=== PATIENT | female | born 1955 | race Caucasian/White ===

== ENCOUNTER 2017-03-08 08:20 | Outpatient (CLI) | payer OTHER ==
[2017-03-08] VITALS (12 sets, daily range): BP systolic 125–148; BP diastolic 62–90
[~2017-03-08] VITALS: Ht 175.3 cm; Wt 102.5 kg
[2017-03-08] MEDS ORDERED: METO50TA2 PO (08:51)
[2017-03-08] MEDS ORDERED: GLIP5TAB10 PO (08:51)
[2017-03-08] MEDS ORDERED: LISI-334 PO (08:51)
[2017-03-08] MEDS ORDERED: HYDR25TA9 PO (08:51)
[2017-03-08] MEDS ORDERED: MONT10TA9 PO (08:51)
[2017-03-08] MEDS ORDERED: POTASSIUM CHLO10 MEQ PO (08:51)
[2017-03-08 09:08] LABS: BASO # 0.1 x10^3/uL (0.0-0.2); BASO % 1 % (0-3); EOS % 4 % (0-3); HEMATOCRIT 43.3 % (36.0-47.0); HEMOGLOBIN 15.1 g/dL (12.0-15.5); LYMPH # 2.3 x10^3/uL (1.0-4.8); LYMPH % 45 % (24-48); MEAN CORPUSCULAR HEMOGLOBIN 31 pg (25-35); MEAN CORPUSCULAR HGB CONC 35 g/dL (31-37); MEAN CORPUSCULAR VOLUME 89 fL (79-100); MONO % 7 % (0-9); NEUT % 43 % (31-73); PLATELET COUNT 174 x10^3/uL (140-400); RED CELL DISTRIBUTION WIDTH 12.6 % (11.5-14.5); WHITE BLOOD COUNT 5.2 x10^3/uL (4.0-11.0)
[2017-03-08 09:21] LABS: INR 1.1 (0.8-1.1); PROTHROMBIN TIME PATIENT 13.3 SEC (11.7-14.0)
[2017-03-08] MEDS ORDERED: LIDOCAINE 1% / SOD BICARB 8.4% 20 ML VIAL. IJ ONE ×2 (09:40→10:00)
[2017-03-08] MEDS ORDERED: NALOXONE 0.4 MG/ML VIAL. ONE (09:50)
[2017-03-08] MEDS ORDERED: FLUMAZENIL 0.5 MG/5 ML VIAL. IV ONE (09:50)
[2017-03-08] MEDS ORDERED: fentaNYL PF VIAL 250 MCG/5 ML VIAL ONE (09:51)
[2017-03-08] MEDS ORDERED: MIDAZOLAM HCL/PF 5 MG/5 ML VIAL. ONE (09:51)
[2017-03-08] MEDS ORDERED: fentaNYL PF VIAL 250 MCG/5 ML VIAL IV ONE (10:00)
[2017-03-08] MEDS ORDERED: MIDAZOLAM HCL/PF 5 MG/5 ML VIAL. IV ONE (10:00)
--- NOTE | 2017-03-08 10:27 | PDOC ---
MODERATE SEDATION ASSESSMENT RISKS/ALTERNATIVES Risks/Alternatives Risks and alternatives of this type of sedation and procedure discussed with: RISK/ALTERNATIVES: Patient H & P ON CHART H & P H & P on chart and reviewed for co-morbid conditions and appropriate labs. H&P ON CHART: Yes STATUS PREG STATUS ASSESSED: N/A MEDS/ALLERGIES REVIEWED Meds/Allergies Reviewed Medications and Allergies including time and route of recently administered narcotics and sedatives. MEDS/ALLERGIES REVIEWED: Yes ASA RATING ASA RATING: II AIRWAY ASSESSMENT Airway Assessment Airway patency, oral function limitations, presence of caps, crowns, dentures, partials, and ability to extend neck assessed. AIRWAY ASSESSMENT: Yes MALLAMPATI SCORE MALLAMPATI SCORE: II PRE-SEDATION ASSESSMENT PRE-SEDATION ASSESSMENT: Yes RADHA ALBARRAN MD March 08, 2017 10:27
--- NOTE | 2017-03-08 10:29 | PDOC1 ---
History and Physical Date of Procedure Date of Admission 03/08/17 Procedure Procedure Image guided liver bx Indication Indication 61 YO female with elevated LFTs Past Medical History Past Medical History See Nursing Pre procedure PMH Past Surgical History Past Surgical History See Nursing Pre Procedure PSH Current Medications Current Medications Current Medications Lidocaine/Sodium Bicarbonate (Buffered Lidocaine 1%) 20 ml STK-MED ONCE IJ ; Start 03/08/17 at 09:40; Stop 03/08/17 at 09:41; Status DC Naloxone HCl (Narcan) 0.4 mg STK-MED ONCE .ROUTE ; Start 03/08/17 at 09:50; Stop 03/08/17 at 09:51; Status DC Flumazenil (Romazicon) 0.5 mg STK-MED ONCE IV ; Start 03/08/17 at 09:50; Stop at 09:51; Status DC Midazolam HCl (Versed) 5 mg STK-MED ONCE .ROUTE ; Start 03/08/17 at 09:51; Stop 03/08/17 at 09:52; Status DC Fentanyl Citrate (Fentanyl 5ml Vial) 250 mcg STK-MED ONCE .ROUTE ; Start at 09:51; Stop 03/08/17 at 09:52; Status DC Lidocaine/Sodium Bicarbonate (Buffered Lidocaine 1%) 20 ml 1X ONCE IJ Last administered on 03/08/17 10:17; Start 03/08/17 at 10:00; Stop 03/08/17 at 10:01 ; Status DC Midazolam HCl (Versed) 5 mg 1X ONCE IV Last administered on 03/08/17 10:16; Start 03/08/17 at 10:00; Stop 03/08/17 at 10:01; Status DC Fentanyl Citrate (Fentanyl 5ml Vial) 250 mcg 1X ONCE IV Last administered on 10:17; Start 03/08/17 at 10:00; Stop 03/08/17 at 10:01; Status DC Active Scripts Active Reported Potassium Chloride 10 Meq Capsule.er 10 Meq PO DAILY Montelukast Sodium Tablet (Montelukast Sodium) 10 Mg Tablet 10 Mg PO HS Glipizide 5 Mg Tablet 1 Tab PO BID Metoprolol Tartrate 50 Mg Tablet 50 Mg PO BID Lisinopril 20 Mg Tablet 20 Mg PO DAILY Hydrochlorothiazide Tablet (Hydrochlorothiazide) 25 Mg Tablet 25 Mg PO DAILY Allergies Allergies: Coded Allergies: No Known Drug Allergies (Unverified , 03/08/17) Physical Exam Vital Signs Vital Signs Date Time Temp Pulse Resp B/P (MAP) Pulse Ox O2 Delivery O2 Flow Rate FiO2 03/08/17 10:17 14 95 Room Air 03/08/17 10:14 63 03/08/17 10:06 3.0 03/08/17 08:54 98.1 148/90 (109) 98.1 Lungs: Clear to auscultation Heart: Normal S2 Psych/Mental Status: Mental status NL Assessment Assessment 61 YO female with elevated LFTs. Problems: Plan Plan Image guided liver bx, as requested by GI. RADHA ALBARRAN MD March 08, 2017 10:29
--- NOTE | 2017-03-08 10:30 | PDOC ---
Exam Program Checker Program Checker Donna Pre-Procedure Diagnosis Pre-Procedure Diagnosis 61 YO diabetic female, with elevated LFTs. Post-Procedure Diagnosis Post-Procedure Diagnosis Same Procedure Performed Procedure Performed CT guided right lobe liver bx Type of Anesthesia Type of Anesthesia Local + Mod sedation. Estimated Blood Loss EBL: Trace Specimens Specimans 3 18G core bx to path in formalin Condition of Patient Condition of Patient Stable. No apparent complication. Disposition Disposition Home from [facility] post recovery, if no problems. F/u with Dr Light. Full report to follow. RADHA ALBARRAN MD March 08, 2017 10:30
--- NOTE | 2017-03-08 16:03 | RAD ---
CT-guided liver biopsy Indication: 61-year-old female with elevated LFTs. Image guided liver biopsy has been requested by GI. Anesthesia: 12 minutes moderate sedation was provided utilizing a total of 1.5 mg Versed and 75 mcg fentanyl, IV. The patient was appropriately monitored by a qualified independent observer throughout the time of moderate sedation. Consent: The procedure was explained in its entirety to the patient and/or the patient's designated agency service representative by a member of the treatment team. This included a discussion of risks and benefits and acceptable alternatives to the procedure, as well as expected consequences of no treatment at all. Discussion of risks included, but was not limited to, those that are most frequent and those that are rare, but possibly severe or life-threatening, as well as the possibility of unforeseen complications. Procedure: Informed consent was obtained from the patient. She was placed supine on the CT scanner. Preliminary noncontrast CT images were obtained through liver. A skin site suitable for CT-guided biopsy of right lobe of liver was selected and marked. That area was prepped and draped in the usual sterile fashion. Conscious sedation was provided with IV Versed and fentanyl. Using aseptic technique, local anesthesia, and CT guidance, a 17-gauge guide needle was successfully introduced into posterior segment right lobe of liver. Three 18-gauge core biopsy samples were then obtained and were submitted in formalin to pathology. Hemostasis was achieved with autologous clot introduced through the biopsy guide needle, which was then removed. A sterile dressing was applied. Patient tolerated the procedure well without apparent complication. Completion CT images revealed no evidence of significant intraparenchymal, subcapsular, or perihepatic hemorrhage. Impression: Successful, uneventful CT-guided liver biopsy, as described. PQRS Compliance Statement: One or more of the following individualized dose reduction techniques was utilized for this procedure: 1. Automated exposure control. 2. Adjustment of MA and/or KV according to patient size. 3. Iterative reconstruction technique.
== END 2017-03-08 12:15 | disposition home or self-care (01) ==
LOC: INTRAD 08:20
PROVIDERS: ATTEND Internal Medicine Gastroenterology
DX: R94.5 Abnormal results of liver function studies (principal); E11.9 Type 2 diabetes mellitus without complications; I10 Essential (primary) hypertension; Z79.01 Long term (current) use of anticoagulants
CPT/HCPCS: 36415; 47000; 77012; 85027; 85610; 99156; J2250; J3010

== ENCOUNTER 2017-07-26 11:57 | Inpatient (IN) | payer OTHER ==
[~2017-07-26] VITALS: Ht 167.6 cm; Wt 98.5 kg
[~2017-07-26 11:57] MED LIST: GLIP5TAB10 PO; HYDR25TA9 PO; LISI-334 PO; METO50TA2 PO; MONT10TA9 PO; POTASSIUM CHLO10 MEQ PO
--- NOTE | 2017-07-26 12:42 | EKG ---
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
--- NOTE | 2017-07-26 13:09 | RAD ---
Portable chest, 07/26/2017: History: Chest pain Comparison is made to a study from 06/26/2007. The heart size and pulmonary vascularity are normal. No acute infiltrate is seen. An unchanged tiny left lower chest nodule is probably a granuloma. There is no evidence of pleural fluid. IMPRESSION: No acute cardiopulmonary abnormality is detected.
[2017-07-26 13:10] LABS: BASO # 0.1 x10^3/uL (0.0-0.2); BASO % 1 % (0-3); EOS % 3 % (0-3); HEMATOCRIT 38.7 % (36.0-47.0); HEMOGLOBIN 13.3 g/dL (12.0-15.5); LYMPH # 3.6 x10^3/uL (1.0-4.8); LYMPH % 55 % (24-48); MEAN CORPUSCULAR HEMOGLOBIN 31 pg (25-35); MEAN CORPUSCULAR HGB CONC 34 g/dL (31-37); MEAN CORPUSCULAR VOLUME 90 fL (79-100); MONO % 8 % (0-9); NEUT % 33 % (31-73); PLATELET COUNT 159 x10^3/uL (140-400); RED BLOOD COUNT 4.31 x10^6/uL (3.50-5.40); WHITE BLOOD COUNT 6.5 x10^3/uL (4.0-11.0)
[2017-07-26 13:30] LABS: CALCIUM 8.7 mg/dL (8.5-10.1); CREATININE 0.6 mg/dL (0.6-1.0); GFR 101.6
[2017-07-26 13:35] LABS: ALBUMIN 3.4 g/dL (3.4-5.0); DIRECT BILIRUBIN 0.1 mg/dL (0.0-0.2); TOTAL BILIRUBIN 0.8 mg/dL (0.2-1.0); TOTAL PROTEIN 7.1 g/dL (6.4-8.2)
--- NOTE | 2017-07-26 14:12 | PHYS DOC ---
Past Medical History Past Medical History: Diabetes-Type I, High Cholesterol, Hypertension Additional Past Medical Histor: elevated liver enzymes Past Surgical History: Other Additional Past Surgical Histo: liver biobsy, laser surgery on cervix Alcohol Use: None Drug Use: None Adult General Chief Complaint Chief Complaint: OTHER COMPLAINTS HPI HPI 62-year-old female presenting to the emergency department today after reportedly having an abnormal EKG in the doctor's office. She had been seen in Dr. office because she was having some pain in her left elbow and left shoulder. 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 The pain in her left shoulder is a deep throbbing sensation. It is not sharp nor pressure. It is nonradiating intermittent worse with movement of the left shoulder and without alleviating factors. She denies nausea vomiting or diaphoresis. She denies unilateral leg swelling hemoptysis or personal family history of blood clotting disorders. Review of systems is negative for fevers chills cough abdominal pain. All other review of systems is negative unless otherwise noted in history of present illness. ED course: 62-year-old female presenting with left shoulder/chest pain and left elbow pain and being sent here after having an abnormal EKG in the doctor's office. Patient has no history of smoking has a history of high blood pressure and high cholesterol with diabetes without a family history of heart disease. EKG obtained and reviewed by myself shows sinus rhythm with a regular rate. [place] normal. Intervals are within normal limits. ST segments are congruent. Not consistent with acute coronary syndrome. Chest x-ray reviewed by myself shows no obvious infiltrate or pneumothorax present. No obvious acute cardiopulmonary process present. Blood work obtained which shows low potassium. Oral potassium given in the emergency department. Given the patient's chest pain a heart score was calculated to be 4. Given this finding the patient was admitted for chest pain rule out. I discussed case with Dr. Allison who accepted the patient for acute inpatient admission for ACS rule out further workup and care. Review of Systems Review of Systems SEE ABOVE. Allergies Allergies Allergies Coded Allergies Type Severity Reaction Last Updated Verified No Known Drug Allergies 03/08/17 No Physical Exam Physical Exam SEE ABOVE Constitutional: Well developed, well nourished, no acute distress, non-toxic appearance. [] HENT: Normocephalic, atraumatic, bilateral external ears normal, oropharynx moist, no oral exudates, nose normal. [] Eyes: PERRLA, EOMI, conjunctiva normal, no discharge. [] Neck: Normal range of motion, no tenderness, supple, no stridor. [] Cardiovascular:Heart rate regular rhythm, no murmur [] Lungs & Thorax: Bilateral breath sounds clear to auscultation [] Abdomen: Bowel sounds normal, soft, no tenderness, no masses, no pulsatile masses. [] Skin: Warm, dry, no erythema, no rash. [] Back: No tenderness, no CVA tenderness. [] Extremities: No tenderness, no cyanosis, no clubbing, ROM intact, no edema. [] Neurologic: Alert and oriented X 3, normal motor function, normal sensory function, no focal deficits noted. [] Psychologic: Affect normal, judgement normal, mood normal. [] Current Patient Data Vital Signs Vital Signs Date Time Temp Pulse Resp B/P (MAP) Pulse Ox O2 Delivery O2 Flow Rate FiO2 07/26/17 12:31 97.8 69 20 169/83 (111) 98 Room Air 97.8 Lab Values Laboratory Tests Test 07/26/17 12:50 White Blood Count 6.5 x10^3/uL (4.0-11.0) Red Blood Count 4.31 x10^6/uL (3.50-5.40) Hemoglobin 13.3 g/dL (12.0-15.5) Hematocrit 38.7 % (36.0-47.0) Mean Corpuscular Volume 90 fL (79-100) Mean Corpuscular Hemoglobin 31 pg (25-35) Mean Corpuscular Hemoglobin Concent 34 g/dL (31-37) Red Cell Distribution Width 13.0 % (11.5-14.5) Platelet Count 159 x10^3/uL (140-400) Neutrophils (%) (Auto) 33 % (31-73) Lymphocytes (%) (Auto) 55 % (24-48) H Monocytes (%) (Auto) 8 % (0-9) Eosinophils (%) (Auto) 3 % (0-3) Basophils (%) (Auto) 1 % (0-3) Neutrophils # (Auto) 2.1 x10^3uL (1.8-7.7) Lymphocytes # (Auto) 3.6 x10^3/uL (1.0-4.8) Monocytes # (Auto) 0.5 x10^3/uL (0.0-1.1) Eosinophils # (Auto) 0.2 x10^3/uL (0.0-0.7) Basophils # (Auto) 0.1 x10^3/uL (0.0-0.2) Sodium Level 141 mmol/L (136-145) Potassium Level 3.0 mmol/L (3.5-5.1) L Chloride Level 104 mmol/L (98-107) Carbon Dioxide Level 28 mmol/L (21-32) Anion Gap 9 (6-14) Blood Urea Nitrogen 12 mg/dL (7-20) Creatinine 0.6 mg/dL (0.6-1.0) Estimated GFR (Cockcroft-Gault) 101.6 Glucose Level 229 mg/dL (70-99) H Calcium Level 8.7 mg/dL (8.5-10.1) Total Bilirubin 0.8 mg/dL (0.2-1.0) Direct Bilirubin 0.1 mg/dL (0.0-0.2) Aspartate Amino Transferase (AST) 24 U/L (15-37) Alanine Aminotransferase (ALT) 33 U/L (14-59) Alkaline Phosphatase 123 U/L (46-116) H Troponin I Quantitative < 0.017 ng/mL (0.000-0.055) QW-Cqj-U-Type Natriuretic Peptide 47 pg/mL (0-124) Total Protein 7.1 g/dL (6.4-8.2) Albumin 3.4 g/dL (3.4-5.0) Lipase 256 U/L (73-393) Laboratory Tests 07/26/17 12:50 Laboratory Tests 07/26/17 12:50 EKG EKG [] Radiology/Procedures Radiology/Procedures [] Course & Med Decision Making Course & Med Decision Making Pertinent Labs and Imaging studies reviewed. (See chart for details) [] Dragon Disclaimer Dragon Disclaimer This electronic medical record was generated, in whole or in part, using a voice recognition dictation system. Departure Departure Impression: Primary Impression: Shoulder pain, left Disposition: ADMITTED INPATIENT Admitting Physician: Rohan Allison Condition: STABLE Referrals: ROHAN ALLISON MD (PCP) MILVIA CAPELLAN MD Jul 26, 2017 14:12
[2017-07-26] MEDS ORDERED: ONDANSETRON PF 4 MG/2 ML VIAL. IV PRN (14:15)
[2017-07-26] MEDS ORDERED: MORPHINE SULFATE 2 MG/ML DISP.SYRIN. IV PRN (14:15)
[2017-07-26] MEDS ORDERED: POTASSIUM CHLORIDE 20 MEQ TABLET.ER. PO ONE (14:15)
--- NOTE | 2017-07-26 16:28 | PDOC2 ---
LINDA SIU LEAD CARGO MOVER 07/26/17 1628: CARDIAC CONSULT DATE OF CONSULT Date of Consult DATE: 07/26/17 TIME: 16:19 REASON FOR CONSULT Reason for Consult: Chest pain REFERRING PHYSICIAN Referring Physician: Dr. Ngo SOURCE Source: Chart review, Patient HISTORY OF PRESENT ILLNESS HISTORY OF PRESENT ILLNESS This is a 62 yo female who presented to PCP office with complaints of chest and left arm pain. In office EKG was reportedly abnormal and patient was sent to the ED for further evaluation and treatment. Patient reports pain began 1 week ago. Was driving home from work when pain developed. Located in her left chest. Describes as pressure. Not associated with dizziness, SOA, palpitations, dizziness, diaphoresis, or nausea/vomiting. Possibly worsened with certain movements. Pain resolved after about 30 minutes without intervention. This morning, pain returned so she went to her PCP. 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 Has done heavy lifting recently and possibly could have strained. No previous h/ o CAD or previous cardiac workup. PAST MEDICAL HISTORY Cardiovascular: HTN, Hyperlipidemia Pulmonary: No pertinent hx GI: No pertinent hx Heme/Onc: No pertinent hx Hepatobiliary: Other (fatty liver) Psych: No pertinent hx Musculoskeletal: Osteoarthritis Rheumatologic: No pertinent hx Infectious disease: No pertinent hx Endocrine: Diabetes Dermatology: No pertinent hx PAST SURGICAL HISTORY Past Surgical History: No pertinent history FAMILY HISTORY Family History: Coronary Artery Disease, Diabetes, Hypertension SOCIAL HISTORY Smoke: No ALCOHOL: none Drugs: None Lives: Alone CURRENT MEDICATIONS CURRENT MEDICATIONS Current Medications Medications (Trade) Dose Ordered Sig/Yuliya Route PRN Reason Start Time Stop Time Status Last Admin Dose Admin Potassium Chloride (Klor-Con) 40 meq 1X ONCE PO 07/26/17 14:15 07/26/17 14:17 DC 07/26/17 14:56 ALLERGIES ALLERGIES: Coded Allergies: No Known Drug Allergies (Unverified , 03/08/17) ROS Review of System 14 point ROS conducted with pertinent positives noted above in HPI. PHYSICAL EXAM General: Alert, Oriented X3, Cooperative, No acute distress HEENT: Atraumatic, Mucous membr. moist/pink Lungs: Clear to auscultation, Normal air movement Heart: Regular rate, Normal S1, Normal S2, No murmurs Abdomen: Soft, No tenderness Extremities: No edema, Normal pulses Skin: No significant lesion Neuro: Normal speech, Sensation intact Psych/Mental Status: Mental status NL, Mood NL MUSCULOSKELETAL: No joint tenderness, Osteoarthritic changes both hands VITALS VITALS Vital Signs Date Time Temp Pulse Resp B/P (MAP) Pulse Ox O2 Delivery O2 Flow Rate FiO2 07/26/17 14:50 60 18 172/82 (112) 99 Room Air 07/26/17 12:31 97.8 97.8 LABS Lab: Laboratory Tests Test 07/26/17 12:50 White Blood Count 6.5 x10^3/uL (4.0-11.0) Red Blood Count 4.31 x10^6/uL (3.50-5.40) Hemoglobin 13.3 g/dL (12.0-15.5) Hematocrit 38.7 % (36.0-47.0) Mean Corpuscular Volume 90 fL (79-100) Mean Corpuscular Hemoglobin 31 pg (25-35) Mean Corpuscular Hemoglobin Concent 34 g/dL (31-37) Red Cell Distribution Width 13.0 % (11.5-14.5) Platelet Count 159 x10^3/uL (140-400) Neutrophils (%) (Auto) 33 % (31-73) Lymphocytes (%) (Auto) 55 % (24-48) Monocytes (%) (Auto) 8 % (0-9) Eosinophils (%) (Auto) 3 % (0-3) Basophils (%) (Auto) 1 % (0-3) Neutrophils # (Auto) 2.1 x10^3uL (1.8-7.7) Lymphocytes # (Auto) 3.6 x10^3/uL (1.0-4.8) Monocytes # (Auto) 0.5 x10^3/uL (0.0-1.1) Eosinophils # (Auto) 0.2 x10^3/uL (0.0-0.7) Basophils # (Auto) 0.1 x10^3/uL (0.0-0.2) Sodium Level 141 mmol/L (136-145) Potassium Level 3.0 mmol/L (3.5-5.1) Chloride Level 104 mmol/L (98-107) Carbon Dioxide Level 28 mmol/L (21-32) Anion Gap 9 (6-14) Blood Urea Nitrogen 12 mg/dL (7-20) Creatinine 0.6 mg/dL (0.6-1.0) Estimated GFR (Cockcroft-Gault) 101.6 Glucose Level 229 mg/dL (70-99) Calcium Level 8.7 mg/dL (8.5-10.1) Total Bilirubin 0.8 mg/dL (0.2-1.0) Direct Bilirubin 0.1 mg/dL (0.0-0.2) Aspartate Amino Transf (AST/SGOT) 24 U/L (15-37) Alanine Aminotransferase (ALT/SGPT) 33 U/L (14-59) Alkaline Phosphatase 123 U/L (46-116) Troponin I Quantitative < 0.017 ng/mL (0.000-0.055) TN-Bwb-Y-Type Natriuretic Peptide 47 pg/mL (0-124) Total Protein 7.1 g/dL (6.4-8.2) Albumin 3.4 g/dL (3.4-5.0) Lipase 256 U/L (73-393) ASSESSMENT/PLAN ASSESSMENT/PLAN 1. Chest pain, atypical 2. Abnormal EKG 3. Hypertension 4. Hypokalemia Recommendations Check lipids, trend troponin Resume home antiHTN therapy Pain likely MSK in origin, but given risk factors and EKG, will proceed with MPI in the am to r/o ischemia NPO p MN. Problems: PIA KING MD 07/27/17 1832: CARDIAC CONSULT ALLERGIES ALLERGIES: Coded Allergies: No Known Drug Allergies (Unverified , 03/08/17) ASSESSMENT/PLAN ASSESSMENT/PLAN Pt. 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 Will follow. Problems: LINDA SIU APRN Jul 26, 2017 16:28 PIA KING MD Jul 27, 2017 18:32
[2017-07-26] MEDS ORDERED: FLU VACC QS2017-18 (36MOS+)/PF 0.5 ML SYRINGE. VAX IM ONE (18:00)
[2017-07-26] MEDS ORDERED: DEXTROSE 50% 25 GM / 50ML DISP.SYRIN. IV PRN (18:30)
[2017-07-26 19:56] VITALS: BP 114/64
[2017-07-26] MEDS: MONTELUKAST SODIUM 10 MG TABLET. PO SCH (21:14)
[2017-07-26] MEDS: METOPROLOL TART IMMED RELEASE 50 MG TABLET. PO SCH (21:15)
[2017-07-26 22:56] VITALS: BP 117/75
[2017-07-27 03:02] VITALS: BP 135/84
[2017-07-27 06:27] LABS: BASO % 1 % (0-3); EOS % 4 % (0-3); HEMATOCRIT 38.7 % (36.0-47.0); HEMOGLOBIN 13.2 g/dL (12.0-15.5); LYMPH # 2.6 x10^3/uL (1.0-4.8); LYMPH % 51 % (24-48); MEAN CORPUSCULAR HEMOGLOBIN 31 pg (25-35); MEAN CORPUSCULAR HGB CONC 34 g/dL (31-37); MEAN CORPUSCULAR VOLUME 91 fL (79-100); MONO % 8 % (0-9); NEUT % 37 % (31-73); PLATELET COUNT 148 x10^3/uL (140-400); RED BLOOD COUNT 4.26 x10^6/uL (3.50-5.40); RED CELL DISTRIBUTION WIDTH 12.9 % (11.5-14.5); WHITE BLOOD COUNT 5.1 x10^3/uL (4.0-11.0)
[2017-07-27 07:29] LABS: ALBUMIN 3.2 g/dL (3.4-5.0); ALBUMIN/GLOBULIN RATIO 0.9 (1.0-1.7); CALCIUM 8.6 mg/dL (8.5-10.1); CREATININE 0.6 mg/dL (0.6-1.0); GFR 101.6; TOTAL BILIRUBIN 0.8 mg/dL (0.2-1.0); TOTAL PROTEIN 6.6 g/dL (6.4-8.2)
[2017-07-27 07:30] VITALS: BP 140/69
[2017-07-27 07:33] LABS: CHOLESTEROL/HDL RATIO 4.2
[2017-07-27] MEDS: INSULIN ASPART 300 UNITS/3 ML INSULN.PEN SQ SCH ×3 (08:00→17:43)
[2017-07-27] MEDS ORDERED: POTASSIUM CHLORIDE 10 MEQ TABLET.ER. PO SCH (08:00)
[2017-07-27] MEDS: METOPROLOL TART IMMED RELEASE 50 MG TABLET. PO SCH ×2 (08:38→22:21)
[2017-07-27] MEDS ORDERED: LISINOPRIL 20 MG TABLET PO SCH (09:00)
[2017-07-27] MEDS ORDERED: REGADENOSON 0.4 MG/5 ML DISP.SYRIN. IV ONE (09:00)
[2017-07-27] MEDS ORDERED: hydroCHLOROthiazide 25 MG TABLET PO SCH ×2 (09:00→21:00)
[2017-07-27] MEDS ORDERED: POTASSIUM CHLORIDE 20 MEQ TABLET.ER. PO ONE ×2 (10:15→12:00)
[2017-07-27 11:00] VITALS: BP 140/65
--- NOTE | 2017-07-27 11:28 | PDOC ---
Provider Note Provider Note Patient seen.Combined History and Physical and discharge summary dictated. See dictation# [id number]. ROHAN ALLISON MD Jul 27, 2017 11:28
--- NOTE | 2017-07-27 14:11 | HP ---
ADMIT DATE: 07/27/2017 ANTICIPATED DATE OF DISCHARGE: 07/27/2017 REASON FOR ADMISSION: Chest pain and abnormal EKG. HISTORY OF PRESENT ILLNESS: This 62-year-old female started having chest pain last week while driving home from work and developed a sharp pain anterior and slightly left of the sternum. The pain lasted for 35-45 minutes. No other symptoms at that time. Subsequently, the pain resolved, but yesterday the pain started again and because of that she came to the office. In the office, EKG showed T-wave inversion in multiple anterolateral leads and they were new compared to the previous EKG in 2012. Because of the chest pains, multiple risk factors and EKG changes, the patient was sent to the Emergency Room. In the Emergency Room, initial workup was negative and the cardiac enzymes were stable, and the patient was admitted for further evaluation and management. At present time, the patient is saying that her chest pain is better. She denies any dyspnea, palpitations, dizziness, cold, cough, congestion, heartburn, nausea, vomiting, diarrhea, constipation, leg pain, leg swelling, dizziness, diaphoresis, or palpitations. REVIEW OF SYSTEMS: As noted in the history of present illness. Other systems reviewed and are negative. PAST MEDICAL HISTORY: The patient has history of hypertension, hyperlipidemia, diabetes mellitus type 2 with history of hypoglycemia, allergic rhinitis, allergic sinusitis, vitamin D deficiency. PAST SURGICAL HISTORY: The patient had a laceration on the right forehead. She had laser surgery on cervix, third stage cancer, D and C x 3. FAMILY HISTORY: Father had diabetes. Mother had diabetes and Parkinson disease. SOCIAL HISTORY: The patient is . No history of smoking, alcoholism or drug abuse. MEDICATIONS: Reviewed. The patient was given aspirin 325 mg in the office prior to her being sent to the hospital. PHYSICAL EXAMINATION: HEENT: The patient is alert, oriented x 3 and not in acute distress. VITAL SIGNS: Temperature 97.7, pulse 65 per minute, respirations 18 per minute, blood pressure 140/69 mmHg. GENERAL: The patient is alert, oriented and not in acute distress. LUNGS: Clear. HEENT: Unremarkable. EYES: Pupils are equal, reacting to light. SKIN: Warm and dry. There is no cyanosis. CARDIOVASCULAR: S1, S2 regular. ABDOMEN: Soft, nontender, no guarding, no rigidity. Liver, spleen and kidney not palpable. Bowel sounds present. EXTREMITIES: No edema. NEUROLOGIC: Alert and oriented, moves all extremities. LABORATORY FINDINGS: Sodium is 144, potassium is 3, BUN 10, creatinine 0.6, glucose 221 and 117, total protein 6.6, albumin 3.2. Triglycerides 160, cholesterol 180, LDL 105. Troponin level is less than 0.017, magnesium 1.9. WBC count 5.1, hemoglobin 13.2. FINAL DIAGNOSES: 1. Chest pain, may be musculoskeletal, but because of the risk factors we will get Cardiology consultation with Dr. Chua. Tugboat Pilot has ordered myocardial perfusion imaging. If the myocardial perfusion imaging is negative, she will be discharged later today. 2. Type 2 diabetes mellitus with hyperglycemia without long-term current use of insulin. 3. Hypertension. 4. Left elbow pain. 5. Hypokalemia. 6. Mixed hyperlipidemia. PLAN: She will need to take cholesterol medication. If the patient is stable, then we will discharge her later today if the myocardial perfusion imaging is negative. FOLLOWUP: To be followed by MD in 5 days. MEDICATIONS: Please refer to the discharge medication list. No new medications at this time, but consideration will be given to starting her on statins because of her being diabetic and high risk for vascular complications. ACTIVITY: As tolerated. DIET: ADA 2 g sodium, low cholesterol diet. ROHAN ALLISON MD DR: KLEVER/mic JOB#: [id number] / [id number]
[2017-07-27 14:50] VITALS: BP 136/61
[2017-07-27 19:15] VITALS: BP 134/68
[2017-07-27] MEDS: TRIAMTERENE/HCTZ 37.5/25MG TABLET. PO SCH (22:20)
[2017-07-27] MEDS: POTASSIUM CHLORIDE 10 MEQ TABLET.ER. PO SCH (22:21)
[2017-07-27] MEDS: MONTELUKAST SODIUM 10 MG TABLET. PO SCH (22:22)
[2017-07-27] MEDS: LISINOPRIL 20 MG TABLET PO SCH (22:22)
[2017-07-27 23:00] VITALS: BP 141/80
[2017-07-28 03:25] VITALS: BP 105/62
[2017-07-28 06:05] LABS: CALCIUM 8.5 mg/dL (8.5-10.1); CREATININE 0.6 mg/dL (0.6-1.0); GFR 101.6; POTASSIUM 4.1 mmol/L (3.5-5.1)
[2017-07-28 07:30] VITALS: BP 141/75
[2017-07-28] MEDS: INSULIN ASPART 300 UNITS/3 ML INSULN.PEN SQ SCH ×3 (08:00→17:20)
[2017-07-28] MEDS: METOPROLOL TART IMMED RELEASE 50 MG TABLET. PO SCH ×2 (08:29→21:03)
[2017-07-28 10:30] VITALS: BP 137/77
--- NOTE | 2017-07-28 10:48 | PDOC ---
IM PROGRESS NOTES- Subjective Subjective Chest pain is better. Objective Vitals Vital Signs Date Time Temp Pulse Resp B/P (MAP) Pulse Ox O2 Delivery O2 Flow Rate FiO2 07/28/17 08:29 141/75 07/28/17 08:00 Room Air 07/28/17 07:30 98.1 61 18 94 98.1 Physical Exam Physical Exam General appearance - alert,well appearing, and in no distress and oriented to person, place, and time Mental Status - alert, oriented to person, place, and time, affect appropriate to mood Head - normal Chest - clear to auscultation, no wheezes, rales or rhonchi, symmetric air entry Heart - S1 and S2 normal Abdomen - soft, nontender, nondistended, no masses or organomegaly Neurological - alert and oriented Musculoskeletal - no muscular tenderness noted Extremities - no pedal edema Skin - warm and dry Labs Laboratory Tests Test 07/26/17 12:50 07/26/17 17:41 07/26/17 20:30 07/26/17 21:12 White Blood Count 6.5 x10^3/uL (4.0-11.0) Red Blood Count 4.31 x10^6/uL (3.50-5.40) Hemoglobin 13.3 g/dL (12.0-15.5) Hematocrit 38.7 % (36.0-47.0) Mean Corpuscular Volume 90 fL (79-100) Mean Corpuscular Hemoglobin 31 pg (25-35) Mean Corpuscular Hemoglobin Concent 34 g/dL (31-37) Red Cell Distribution Width 13.0 % (11.5-14.5) Platelet Count 159 x10^3/uL (140-400) Neutrophils (%) (Auto) 33 % (31-73) Lymphocytes (%) (Auto) 55 % (24-48) Monocytes (%) (Auto) 8 % (0-9) Eosinophils (%) (Auto) 3 % (0-3) Basophils (%) (Auto) 1 % (0-3) Neutrophils # (Auto) 2.1 x10^3uL (1.8-7.7) Lymphocytes # (Auto) 3.6 x10^3/uL (1.0-4.8) Monocytes # (Auto) 0.5 x10^3/uL (0.0-1.1) Eosinophils # (Auto) 0.2 x10^3/uL (0.0-0.7) Basophils # (Auto) 0.1 x10^3/uL (0.0-0.2) Sodium Level 141 mmol/L (136-145) Potassium Level 3.0 mmol/L (3.5-5.1) Chloride Level 104 mmol/L (98-107) Carbon Dioxide Level 28 mmol/L (21-32) Anion Gap 9 (6-14) Blood Urea Nitrogen 12 mg/dL (7-20) Creatinine 0.6 mg/dL (0.6-1.0) Estimated GFR (Cockcroft-Gault) 101.6 Glucose Level 229 mg/dL (70-99) Calcium Level 8.7 mg/dL (8.5-10.1) Magnesium Level 1.9 mg/dL (1.8-2.4) Total Bilirubin 0.8 mg/dL (0.2-1.0) Direct Bilirubin 0.1 mg/dL (0.0-0.2) Aspartate Amino Transf (AST/SGOT) 24 U/L (15-37) Alanine Aminotransferase (ALT/SGPT) 33 U/L (14-59) Alkaline Phosphatase 123 U/L (46-116) Troponin I Quantitative < 0.017 ng/mL (0.000-0.055) < 0.017 ng/mL (0.000-0.055) GZ-Cwy-C-Type Natriuretic Peptide 47 pg/mL (0-124) Total Protein 7.1 g/dL (6.4-8.2) Albumin 3.4 g/dL (3.4-5.0) Lipase 256 U/L (73-393) Glucose (Fingerstick) 138 mg/dL (70-99) 221 mg/dL (70-99) Test 07/27/17 02:30 07/27/17 04:30 07/27/17 08:02 07/27/17 11:46 White Blood Count 5.1 x10^3/uL (4.0-11.0) Red Blood Count 4.26 x10^6/uL (3.50-5.40) Hemoglobin 13.2 g/dL (12.0-15.5) Hematocrit 38.7 % (36.0-47.0) Mean Corpuscular Volume 91 fL (79-100) Mean Corpuscular Hemoglobin 31 pg (25-35) Mean Corpuscular Hemoglobin Concent 34 g/dL (31-37) Red Cell Distribution Width 12.9 % (11.5-14.5) Platelet Count 148 x10^3/uL (140-400) Neutrophils (%) (Auto) 37 % (31-73) Lymphocytes (%) (Auto) 51 % (24-48) Monocytes (%) (Auto) 8 % (0-9) Eosinophils (%) (Auto) 4 % (0-3) Basophils (%) (Auto) 1 % (0-3) Neutrophils # (Auto) 1.9 x10^3uL (1.8-7.7) Lymphocytes # (Auto) 2.6 x10^3/uL (1.0-4.8) Monocytes # (Auto) 0.4 x10^3/uL (0.0-1.1) Eosinophils # (Auto) 0.2 x10^3/uL (0.0-0.7) Basophils # (Auto) 0.0 x10^3/uL (0.0-0.2) Troponin I Quantitative < 0.017 ng/mL (0.000-0.055) Sodium Level 144 mmol/L (136-145) Potassium Level 3.0 mmol/L (3.5-5.1) Chloride Level 106 mmol/L (98-107) Carbon Dioxide Level 26 mmol/L (21-32) Anion Gap 12 (6-14) Blood Urea Nitrogen 10 mg/dL (7-20) Creatinine 0.6 mg/dL (0.6-1.0) Estimated GFR (Cockcroft-Gault) 101.6 BUN/Creatinine Ratio 17 (6-20) Glucose Level 207 mg/dL (70-99) Calcium Level 8.6 mg/dL (8.5-10.1) Total Bilirubin 0.8 mg/dL (0.2-1.0) Aspartate Amino Transf (AST/SGOT) 28 U/L (15-37) Alanine Aminotransferase (ALT/SGPT) 34 U/L (14-59) Alkaline Phosphatase 106 U/L (46-116) Total Protein 6.6 g/dL (6.4-8.2) Albumin 3.2 g/dL (3.4-5.0) Albumin/Globulin Ratio 0.9 (1.0-1.7) Triglycerides Level 160 mg/dL (0-150) Cholesterol Level 180 mg/dL (0-200) LDL Cholesterol, Calculated 105 mg/dL (0-100) VLDL Cholesterol, Calculated 32 mg/dL (0-40) Non-HDL Cholesterol Calculated 137 mg/dL (0-129) HDL Cholesterol 43 mg/dL (40-60) Cholesterol/HDL Ratio 4.2 Glucose (Fingerstick) 117 mg/dL (70-99) 191 mg/dL (70-99) Test 07/27/17 16:41 07/27/17 20:43 07/28/17 05:04 07/28/17 08:17 Glucose (Fingerstick) 198 mg/dL (70-99) 199 mg/dL (70-99) 127 mg/dL (70-99) Sodium Level 141 mmol/L (136-145) Potassium Level 4.1 mmol/L (3.5-5.1) Chloride Level 107 mmol/L (98-107) Carbon Dioxide Level 27 mmol/L (21-32) Anion Gap 7 (6-14) Blood Urea Nitrogen 8 mg/dL (7-20) Creatinine 0.6 mg/dL (0.6-1.0) Estimated GFR (Cockcroft-Gault) 101.6 Glucose Level 143 mg/dL (70-99) Calcium Level 8.5 mg/dL (8.5-10.1) Laboratory Tests Test 07/27/17 11:46 07/27/17 16:41 07/27/17 20:43 07/28/17 05:04 Glucose (Fingerstick) 191 mg/dL (70-99) 198 mg/dL (70-99) 199 mg/dL (70-99) Sodium Level 141 mmol/L (136-145) Potassium Level 4.1 mmol/L (3.5-5.1) Chloride Level 107 mmol/L (98-107) Carbon Dioxide Level 27 mmol/L (21-32) Anion Gap 7 (6-14) Blood Urea Nitrogen 8 mg/dL (7-20) Creatinine 0.6 mg/dL (0.6-1.0) Estimated GFR (Cockcroft-Gault) 101.6 Glucose Level 143 mg/dL (70-99) Calcium Level 8.5 mg/dL (8.5-10.1) Test 07/28/17 08:17 Glucose (Fingerstick) 127 mg/dL (70-99) Meds Current Medications Hydrochlorothiazide (Hydrodiuril) 25 mg QHS PO ; Start 07/27/17 at 21:00; Stop 07/27/17 at 21:00; Status DC Lisinopril (Prinivil) 20 mg QHS PO Last administered on 07/27/17 22:22; Start 07/27/17 at 21:00 Potassium Chloride (Klor-Con) 10 meq QHS PO Last administered on 07/27/17 22: 21; Start 07/27/17 at 21:00 Potassium Chloride (Klor-Con) 20 meq 1X ONCE PO Last administered on 12:23; Start 07/27/17 at 12:00; Stop 07/27/17 at 12:01; Status DC Triamterene/HCTZ (Maxzide 37.5/ 25mg) 1 tab HS PO Last administered on 22:20; Start 07/27/17 at 21:00 Assessment Assessment 1. Chest pain, may be musculoskeletal, but because of the risk factors we will get Cardiology consultation with Dr. Chua. Rn Pain Management has ordered myocardial perfusion imaging. If the myocardial perfusion imaging is negative, she will be discharged later today. 2. Type 2 diabetes mellitus with hyperglycemia without long-term current use of insulin. 3. Hypertension. 4. Left elbow pain. 5. Hypokalemia. 6. Mixed hyperlipidemia. PLAN: She will need to take cholesterol medication. If the patient is stable, then we will discharge her later today if the myocardial perfusion imaging is negative. see in office in 5 days. Discharge Management - 35 minutes. Plan Plan For more details regarding further plans, please refer to the orders. ROHAN ALLISON MD Jul 28, 2017 10:48
--- NOTE | 2017-07-28 10:55 | DISCH ---
DISCHARGE INSTRUCTIONS Condition on Discharge Condition on Discharge: Stable Activity After Discharge Activity Instructions for Disc: No restrictions, Resume previous activity Diet after Discharge Diet after Discharge: Cardiac Contacting the after DC Call your doctor for: Concerns you may have Follow-Up Follow up with: Dr.Pratip Allison in 5 days ROHAN ALLISON MD Jul 28, 2017 10:55
--- NOTE | 2017-07-28 12:33 | RAD ---
APPROVED REPORT Test Type: Pharmacological Stress Nurse/Tech: Gisele Worthington R.N. Test Indications: C/P Cardiac History: HTN,DM Medications: See Electronic Medical Record Medical History: See Electronic Medical Record Resting ECG: SR Resting Heart Rate: 61 bpm Resting Blood Pressure: 142/71mmHg Pretest Chest Pain: No chest pain Nurse/Tech Notes S1S2, LUNGS CTA Consent: The procedure was explained to the patient in lay terms. Informed consent was witnessed. Abimael eout was entered into [employer]. History and Stress Test performed by KAIT Martin, SOTO (R) (N) Pharm. Details Pharmacologic stress testing was performed using 0.4mg per 5ml of regadenoson given intravenously ove r 7-10 seconds. Stress Symptoms slight SOB which quickly faded POST EXERCISE Reason for Termination: Infusion complete Max HR: 94 bpm Max Blood Pressure: 146/77mmHg Blood Pressure response to exercise: Normal blood pressure response during stress. Heart Rate response to exercise: wnl Chest Pain: No. Arrhythmia: No. ST Change: No. INTERPRETATION Stress EKG Conclusion: No evidence of stress induced EKG changes. Imaging Protocol IMAGE PROTOCOL: Stress Tc-99m/rest Tc-99m 2 days Rest: Stress: Viability: Radiopharm.Tc99m CixipsrvsOy16a Sestamibi Lnzm28zEl 33mCi Img Date 07/28/2017 07/27/2017 Inj-Img [id number]. 30min. Rest Admin Site:IV - Left AntecubitalAdministrator:KAIT Martin ARRT (R)(N) Stress Admin Site: IV - Left AntecubitalAdministrator: KAIT Martin ARRT (R)(N) STRESS DATA End Diast. Vol.95.5mlAv. Heart Rate62.0bpm End Syst. Vol.30.5mlCO Index BSA0.0L/min Myocardial Bkuz529.0gEject. Qslibzbq46.0% Stress Rates Pk. Fill Rate2.85EDV/secLVtime Pk. Fill 267.87msec Pk. Empty Rate3.14ESV/secLVtime Pk. Plqoa798.72msec 1/3 Pk. Fill1.15EDV/sec Stress Scores Regional WT0.00Summed WT2.00 Regional WM0.00Summed WM0.00 LV Perfusion There is a mild severity, mid to distal mellisa-septal perfusion defect that is mostly reversible. The re is TID with a value of 1.44, suggestive of balanced ischemia or 3V CAD. Wall Motion Normal wall motion. Grossly normal function. EF > 65% LV Perf. Quant 17 Seg. SSS3.00 17 Seg. SRS4.00 17 Seg. SDS0.00 Stress Defect Extent (% LAD)13.75Rest Defect Extent (% LAD)9.40Rev. Defect Extent (% LAD)0.95 Stress Defect Extent (% LCX) 0.00Rest Defect Extent (% LCX)8.80Rev. Defect Extent (% LCX)0.00 Stress Defect Extent (% RCA)0.00Rest Defect Extent (% RCA)0.00Rev. Defect Extent (% RCA)0.00 Stress Defect Extent (% ELIO)5.10Rest Defect Extent (% ELIO)6.50Rev. Defect Extent (% ELIO)0.35 Other Information Quality:Average Risk Assessment: Moderate-High Risk Conclusion 1. No evidence of stress induced EKG changes. 2. Anterior reversible perfusion defect with TID suggestive of balanced ischemia. 3. Normal EF at > 65% 4. Moderate risk study Recommendations Consider coronary angiography
[2017-07-28 14:30] VITALS: BP 97/55
[2017-07-28 19:00] VITALS: BP 123/64
[2017-07-28] MEDS: MONTELUKAST SODIUM 10 MG TABLET. PO SCH (21:02)
[2017-07-28] MEDS: TRIAMTERENE/HCTZ 37.5/25MG TABLET. PO SCH (21:02)
[2017-07-28] MEDS: LISINOPRIL 20 MG TABLET PO SCH (21:03)
[2017-07-28] MEDS: POTASSIUM CHLORIDE 10 MEQ TABLET.ER. PO SCH (21:03)
[2017-07-28 22:51] VITALS: BP 123/47
[2017-07-29] VITALS (17 sets, daily range): BP systolic 95–148; BP diastolic 54–79
[2017-07-29] MEDS ORDERED: LIDOCAINE 2% 20 ML VIAL. ONE (07:55)
[2017-07-29] MEDS ORDERED: IOHEXOL 300 MG/ML 100ML VIAL. ONE (07:55)
[2017-07-29] MEDS ORDERED: HEPARIN for ARTERIAL LINE 1,500 ML ONE (07:56)
[2017-07-29] MEDS: INSULIN ASPART 300 UNITS/3 ML INSULN.PEN SQ SCH ×2 (08:00→12:22)
[2017-07-29] MEDS ORDERED: VERAPAMIL 5 MG/2 ML VIAL. ONE (08:01)
[2017-07-29] MEDS ORDERED: HEPARIN for IV BOLUS 10,000 UNIT/10 ML VIAL. ONE (08:01)
[2017-07-29] MEDS ORDERED: NITROGLYCERIN 200 MCG/2 ML SYRINGE FOR CATH/VASC LAB. ONE (08:01)
[2017-07-29] MEDS ORDERED: fentaNYL PF VIAL 100 MCG/2 ML VIAL ONE (08:01)
[2017-07-29] MEDS ORDERED: MIDAZOLAM HCL/PF 2 MG/2 ML VIAL. ONE (08:01)
--- NOTE | 2017-07-29 08:12 | PDOC ---
CATA TOTH FLOW MANAGER 07/29/17 0812: IM PROGRESS NOTES- Subjective Subjective No chest pain Objective Objective alert, no acute distress Vitals Vital Signs Date Time Temp Pulse Resp B/P (MAP) Pulse Ox O2 Delivery O2 Flow Rate FiO2 07/29/17 03:10 97.9 16 113/54 (73) 95 Room Air 97.9 07/28/17 22:51 56 Physical Exam Physical Exam General appearance - alert,well appearing, and in no distress Mental Status - alert, oriented to person, place, and time, affect appropriate to mood Head - normal Chest - clear to auscultation, no wheezes, rales or rhonchi Heart - S1 and S2 normal Abdomen - soft, nontender, nondistended, obese, BS + Neurological - no acute neurological deficit noted Musculoskeletal - no muscular tenderness noted Extremities - no pedal edema Skin - warm and dry Labs Laboratory Tests Test 07/27/17 08:02 07/27/17 11:46 07/27/17 16:41 07/27/17 20:43 Glucose (Fingerstick) 117 mg/dL (70-99) 191 mg/dL (70-99) 198 mg/dL (70-99) 199 mg/dL (70-99) Test 07/28/17 05:04 07/28/17 08:17 07/28/17 11:33 07/28/17 16:38 Sodium Level 141 mmol/L (136-145) Potassium Level 4.1 mmol/L (3.5-5.1) Chloride Level 107 mmol/L (98-107) Carbon Dioxide Level 27 mmol/L (21-32) Anion Gap 7 (6-14) Blood Urea Nitrogen 8 mg/dL (7-20) Creatinine 0.6 mg/dL (0.6-1.0) Estimated GFR (Cockcroft-Gault) 101.6 Glucose Level 143 mg/dL (70-99) Calcium Level 8.5 mg/dL (8.5-10.1) Glucose (Fingerstick) 127 mg/dL (70-99) 185 mg/dL (70-99) 247 mg/dL (70-99) Test 07/28/17 20:48 Glucose (Fingerstick) 234 mg/dL (70-99) Laboratory Tests Test 07/28/17 08:17 07/28/17 11:33 07/28/17 16:38 07/28/17 20:48 Glucose (Fingerstick) 127 mg/dL (70-99) 185 mg/dL (70-99) 247 mg/dL (70-99) 234 mg/dL (70-99) Meds Current Medications Heparin Sodium/ Sodium Chloride 1,500 ml @ As Directed STK-MED ONCE .ROUTE ; Start 07/29/17 at 07:56; Stop 07/29/17 at 07:57; Status DC Iohexol (Omnipaque 300 Mg/ml) 100 ml STK-MED ONCE .ROUTE ; Start 07/29/17 at 07: 55; Stop 07/29/17 at 07:56; Status DC Lidocaine HCl 20 ml STK-MED ONCE .ROUTE ; Start 07/29/17 at 07:55; Stop at 07:56; Status DC Assessment Assessment 1. Chest pain, may be musculoskeletal 2. Type 2 diabetes mellitus with hyperglycemia without long-term current use of insulin. 3. Hypertension. 4. Left elbow pain. 5. Hypokalemia. 6. Mixed hyperlipidemia. PLAN: 07/29/17 chest pain - chest wall tenderness on admit - MPI abnormal - Anterior reversible perfusion defect with TID suggestive of balanced ischemia. Moderate risk study. CC today DM II - BS 127-247 not controlled due to non compliance with diet, meds - Toujeo 15mg daily in the morning - will begin at discharge --continue SSI today hypokalemia - K 3.0 admit - today 4.1 KCL 10meq at hs HTN - controlled hyperlipidemia - not controlled - is on statin out patient and is not taking it - begin atrovastin 20mg at hs - f/u out patient Admit to 07/28/17: She will need to take cholesterol medication. If the patient is stable, then we will discharge her later today if the myocardial perfusion imaging is negative. see in office in 5 days. Discharge Management - 35 minutes. Plan Plan For more details regarding further plans, please refer to the orders. ROHAN ALLISON MD 07/29/17 0908: IM PROGRESS NOTES- Assessment Assessment Chart reviewed and plan of care formulated. Discussed with, reviewed and agree with INFECTION CONTROL PRACTITIONER's notes, plan of care and orders with modifications as necessary. For more details regarding further plans, please refer to the orders. CATA TOTH APRN Jul 29, 2017 08:12 ROHAN ALLISON MD Jul 29, 2017 09:08
[2017-07-29] MEDS ORDERED: ATOR20TA PO (08:19)
[2017-07-29] MEDS ORDERED: TRIA1CAP3 PO (08:19)
[2017-07-29] MEDS ORDERED: INSU300I SQ (08:19)
--- NOTE | 2017-07-29 08:32 | PDOC ---
MODERATE SEDATION ASSESSMENT RISKS/ALTERNATIVES Risks/Alternatives Risks and alternatives of this type of sedation and procedure discussed with: RISK/ALTERNATIVES: Patient H & P ON CHART H & P H & P on chart and reviewed for co-morbid conditions and appropriate labs. H&P ON CHART: Yes STATUS PREG STATUS ASSESSED: N/A MEDS/ALLERGIES REVIEWED Meds/Allergies Reviewed Medications and Allergies including time and route of recently administered narcotics and sedatives. MEDS/ALLERGIES REVIEWED: Yes ASA RATING ASA RATING: II AIRWAY ASSESSMENT Airway Assessment Airway patency, oral function limitations, presence of caps, crowns, dentures, partials, and ability to extend neck assessed. AIRWAY ASSESSMENT: Yes MALLAMPATI SCORE MALLAMPATI SCORE: II PRE-SEDATION ASSESSMENT PRE-SEDATION ASSESSMENT: Yes PIA KING MD Jul 29, 2017 08:32
[2017-07-29] MEDS ORDERED: HEPARIN for IV BOLUS 10,000 UNIT/10 ML VIAL. IART ONE (08:45)
[2017-07-29] MEDS ORDERED: CONTRAST GIVEN MC PRN (08:45)
[2017-07-29] MEDS ORDERED: MIDAZOLAM HCL/PF 2 MG/2 ML VIAL. IV ONE (08:45)
[2017-07-29] MEDS ORDERED: VERAPAMIL 5 MG/2 ML VIAL. IART ONE (08:45)
[2017-07-29] MEDS ORDERED: LIDOCAINE 2% 20 ML VIAL. IJ ONE (08:45)
[2017-07-29] MEDS ORDERED: NITROGLYCERIN 200 MCG/2 ML SYRINGE FOR CATH/VASC LAB. IART ONE (08:45)
[2017-07-29] MEDS ORDERED: fentaNYL PF VIAL 100 MCG/2 ML VIAL IV ONE (08:45)
[2017-07-29] MEDS ORDERED: IOHEXOL 300 MG/ML 100ML VIAL. IART ONE (08:45)
[2017-07-29] MEDS: METOPROLOL TART IMMED RELEASE 50 MG TABLET. PO SCH (12:18)
--- NOTE | 2017-07-29 13:18 | CARD ---
APPROVED REPORT Procedure(s) performed: Coronaries, LV w/ Injection, Left ventriculogram Moderate Sedation: 24 MIN HISTORY The patient is a 62 year-old female with a history of : hypertension, dyslipidemia. INDICATION The indication(s) include : positive stress test, atypical chest pain . PROCEDURE NARRATIVE The patient was brought electively to the cardiac catheterization lab. A timeout was performed confi rming the patient's name, date of , procedure, and site of procedure. All necessary personnel w ere wearing the appropriate protective equipment and radiation monitor devices. After explaining the risks and benefits of the procedure and alternatives, informed consent was obtained. (See nursing no svetlana for medications administered). The right wrist was sterilely prepped and draped in the usual fas hion. The right wrist was infiltrated with 1 mL of 2% lidocaine for subcutaneous anesthesia. A 6 Fr ench Terumo glide sheath was inserted into the right radial artery without difficulty. Right and lef t coronary angiography was performed using a 6Fr TIG 4.0 catheter. Left ventricular end diastolic pr essure was obtained with a pigtail catheter and pullback was performed after left ventriculography. All catheter exchanges and advancements were performed over a guidewire. At case completion the righ t radial sheath was removed and a Terumo radial band was applied with 13 ml of air. The patient tole rated the procedure well and there were no immediate complications. HEMODYNAMICS: LVEDP 5 mm Hg No gradient on LV to aortic pullback. LEFT VENTRICULOGRAM: EF 55% Anterobasal: Normal. Anterolateral: Normal Apical: Normal Diaphragmatic: Normal Posterobasal: Normal CORONARY ANGIOGRAPHY: LM is a large caliber vessel with normal angiographic appearance. LAD is a large caliber vessel with normal angiographic appearance. D1 is a moderate caliber vessel with an ostial 20% stenosis. LCx is a moderate caliber non-dominant vessel with normal angiographic appearance. OM1 is a moderate caliber vessel with a proximal 60% stenosis. LPDA is a moderate caliber vessel with normal angiographic appearance. RCA is a small caliber non-dominant vessel. Conclusion 1. 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 2. Normal LV function. Recommendations 1. Medical therapy.
--- NOTE | 2017-07-30 14:51 | PDOC3 ---
IM DISCHARGE SUMMARY Date of Admission Date of Admission Date of Admission: Jul 27, 2017 at 11:30 Date of Discharge Date of Discharge 07/29/17 Primary Diagnosis Primary Diagnosis 1. Chest pain with MS wall tenderness not costochondritis 2. Type 2 diabetes mellitus with hyperglycemia without long-term current use of insulin. 3. Hypertension. 4. Left elbow pain OA 5. Hypokalemia resolved 6. Mixed hyperlipidemia. 7. Abnormal MPI with CC single vessel disease not in area of defect-medical management 8. CAD single vessel - 1st OM medical management Problems: Consults Consults Pia Chua MD Procedures Procedures APPROVED REPORT Procedure(s) performed: Coronaries, LV w/ Injection, Left ventriculogram Moderate Sedation: 24 MIN HISTORY The patient is a 62 year-old female with a history of : hypertension, dyslipidemia. INDICATION The indication(s) include : positive stress test, atypical chest pain . PROCEDURE NARRATIVE The patient was brought electively to the cardiac catheterization lab. A timeout was performed confirming the patient's name, date of , procedure, and site of procedure. All necessary personnel were wearing the appropriate protective equipment and radiation monitor devices. After explaining the risks and benefits of the procedure and alternatives, informed consent was obtained. ( See nursing notes for medications administered). The right wrist was sterilely prepped and draped in the usual fashion. The right wrist was infiltrated with 1 mL of 2% lidocaine for subcutaneous anesthesia. A 6 [place] Terumo glide sheath was inserted into the right radial artery without difficulty. Right and left coronary angiography was performed using a 6Fr TIG 4.0 catheter. Left ventricular end diastolic pressure was obtained with a pigtail catheter and pullback was performed after left ventriculography. All catheter exchanges and advancements were performed over a guidewire. At case completion the right radial sheath was removed and a Terumo radial band was applied with 13 ml of air. The patient tolerated the procedure well and there were no immediate complications. HEMODYNAMICS: LVEDP 5 mm Hg No gradient on LV to aortic pullback. LEFT VENTRICULOGRAM: EF 55% Anterobasal: Normal. Anterolateral: Normal Apical: Normal Diaphragmatic: Normal Posterobasal: Normal CORONARY ANGIOGRAPHY: LM is a large caliber vessel with normal angiographic appearance. LAD is a large caliber vessel with normal angiographic appearance. D1 is a moderate caliber vessel with an ostial 20% stenosis. LCx is a moderate caliber non-dominant vessel with normal angiographic appearance. OM1 is a moderate caliber vessel with a proximal 60% stenosis. LPDA is a moderate caliber vessel with normal angiographic appearance. RCA is a small caliber non-dominant vessel. Conclusion 1. 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 2. Normal LV function. Recommendations 1. Medical therapy. DICTATED and SIGNED BY: PIA CHUA MD DATE: 07/29/17 1317 APPROVED REPORT Test Type: Pharmacological Stress Nurse/Tech: Gisele Worthington R.N. Test Indications: C/P Cardiac History: HTN,DM Medications: See Electronic Medical Record Medical History: See Electronic Medical Record Resting ECG: SR Resting Heart Rate: 61 bpm Resting Blood Pressure: 142/71mmHg Pretest Chest Pain: No chest pain Nurse/Tech Notes S1S2, LUNGS CTA Consent: The procedure was explained to the patient in lay terms. Informed consent was witnessed. Timeout was entered into FIZZA. History and Stress Test performed by KAIT Martin ARRT (Jannette) (N) Pharm. Details Pharmacologic stress testing was performed using 0.4mg per 5ml of regadenoson given intravenously over 7-10 seconds. Stress Symptoms slight SOB which quickly faded POST EXERCISE Reason for Termination: Infusion complete Max HR: 94 bpm Max Blood Pressure: 146/77mmHg Blood Pressure response to exercise: Normal blood pressure response during stress. Heart Rate response to exercise: wnl Chest Pain: No. Arrhythmia: No. ST Change: No. INTERPRETATION Stress EKG Conclusion: No evidence of stress induced EKG changes. Imaging Protocol IMAGE PROTOCOL: Stress Tc-99m/rest Tc-99m 2 days Rest: Stress: Viability: Radiopharm. Tc99m Sestamibi Tc99m Sestamibi Dose 32mCi 33mCi Img Date 07/28/2017 07/27/2017 Inj-Img Time 45min. 30min. Rest Admin Site: IV - Left Antecubital Mill Labor Supervisor: KAIT Martin ARRT (Jannette)(N) Stress Admin Site: IV - Left Antecubital Mill Labor Supervisor: KAIT Martin, ARRT (R)(N) STRESS DATA End Diast. Vol. 95.5ml Av. Heart Rate 62.0bpm End Syst. Vol. 30.5ml CO Index BSA 0.0L/min Myocardial Mass 132.0g Eject. Fraction 68.0% Stress Rates Pk. Fill Rate 2.85EDV/sec LVtime Pk. Fill 267.87msec Pk. Empty Rate 3.14ESV/sec LVtime Pk. Eject 134.72msec /3 Pk. Fill 1.15EDV/sec Stress Scores Regional WT 0.00 Summed WT 2.00 Regional WM 0.00 Summed WM 0.00 LV Perfusion There is a mild severity, mid to distal mellisa-septal perfusion defect that is mostly reversible. There is TID with a value of 1.44, suggestive of balanced ischemia or 3V CAD. Wall Motion Normal wall motion. Grossly normal function. EF > 65% LV Perf. Quant 17 Seg. SSS 3.00 17 Seg. SRS 4.00 17 Seg. SDS 0.00 Stress Defect Extent (% LAD) 13.75 Rest Defect Extent (% LAD) 9.40 Rev. Defect Extent (% LAD) 0.95 Stress Defect Extent (% LCX) 0.00 Rest Defect Extent (% LCX) 8.80 Rev. Defect Extent (% LCX) 0.00 Stress Defect Extent (% RCA) 0.00 Rest Defect Extent (% RCA) 0.00 Rev. Defect Extent (% RCA) 0.00 Stress Defect Extent (% ELIO) 5.10 Rest Defect Extent (% ELIO) 6.50 Rev. Defect Extent (% ELIO) 0.35 Other Information Quality:Average Risk Assessment: Moderate-High Risk Conclusion 1. No evidence of stress induced EKG changes. 2. Anterior reversible perfusion defect with TID suggestive of balanced ischemia. 3. Normal EF at > 65% 4. Moderate risk study Recommendations Consider coronary angiography DICTATED and SIGNED BY: PIA CHUA MD DATE: 07/28/17 1234 Labs Labs Laboratory Tests Test 07/27/17 16:41 07/27/17 20:43 07/28/17 05:04 07/28/17 08:17 Glucose (Fingerstick) 198 mg/dL (70-99) 199 mg/dL (70-99) 127 mg/dL (70-99) Sodium Level 141 mmol/L (136-145) Potassium Level 4.1 mmol/L (3.5-5.1) Chloride Level 107 mmol/L (98-107) Carbon Dioxide Level 27 mmol/L (21-32) Anion Gap 7 (6-14) Blood Urea Nitrogen 8 mg/dL (7-20) Creatinine 0.6 mg/dL (0.6-1.0) Estimated GFR (Cockcroft-Gault) 101.6 Glucose Level 143 mg/dL (70-99) Calcium Level 8.5 mg/dL (8.5-10.1) Test 07/28/17 11:33 07/28/17 16:38 07/28/17 20:48 07/29/17 07:52 Glucose (Fingerstick) 185 mg/dL (70-99) 247 mg/dL (70-99) 234 mg/dL (70-99) 136 mg/dL (70-99) Test 07/29/17 11:58 Glucose (Fingerstick) 243 mg/dL (70-99) Brief hospital course Brief hospital course This 62 year old female who presented with chest pain was admitted. The following is a summary of her treatment: 07/29/17 chest pain - chest wall tenderness on admit - MPI abnormal - Anterior reversible perfusion defect with TID suggestive of balanced ischemia. Moderate risk study. CC result: One vessel CAD of moderate nature involving the 1st OM, does not correspond with stress defect. Medical management. DM II - BS 127-247 not controlled due to non compliance with diet, meds - Toujeo 15mg daily in the morning - will begin at discharge --continue SSI today hypokalemia - K 3.0 admit - today 4.1 KCL 10meq at hs HTN - controlled hyperlipidemia - not controlled - is on statin out patient and is not taking it - begin atrovastin 20mg at hs - f/u out patient DC management 35 minutes 07/28/17 Plan DC home if CC negative Take statin as directed. 07/27/17 She will need to take cholesterol medication. If the patient is stable, then we will discharge her later today if the myocardial perfusion imaging is negative. For more details regarding the past history, family history, social history, surgical history and other details, please refer to History and Physical. Please see discharge orders. Medications Medications reviewed and reconciled for discharge. Allergy Allergies Coded Allergies Type Severity Reaction Last Updated Verified No Known Drug Allergies 03/08/17 No Follow up in 5 days. Comments Discharge Management - 35 minutes. For other details please refer to discharge instructions CATA TOTH APRN Jul 30, 2017 14:51
== END 2017-07-29 13:00 | disposition home or self-care (01) | DRG 287 ==
LOC: ER 11:57 → 5 NORTH 14:03 → OBSVTOIN 07-27 11:30
PROVIDERS: ADMIT Internal Medicine; ATTEND Internal Medicine
PROC: B2111ZZ Fluoroscopy of Multiple Coronary Arteries using Low Osmolar Contrast (ICD-10-PCS; principal; 2017-07-29)
PROC: B2151ZZ Fluoroscopy of Left Heart using Low Osmolar Contrast (ICD-10-PCS; 2017-07-29)
PROC: 4A023N7 Measurement of Cardiac Sampling and Pressure, Left Heart, Percutaneous Approach (ICD-10-PCS; 2017-07-29)
DX: R07.89 Other chest pain (principal); E11.65 Type 2 diabetes mellitus with hyperglycemia; K76.0 Fatty (change of) liver, not elsewhere classified; I10 Essential (primary) hypertension; E78.2 Mixed hyperlipidemia; E87.6 Hypokalemia; Z82.0 Family history of epilepsy and other diseases of the nervous system; Z82.49 Family history of ischemic heart disease and other diseases of the circulatory system; Z83.3 Family history of diabetes mellitus; Z91.11 Patient's noncompliance with dietary regimen; M19.90 Unspecified osteoarthritis, unspecified site; E78.00 Pure hypercholesterolemia, unspecified; I25.10 Atherosclerotic heart disease of native coronary artery without angina pectoris
CPT/HCPCS: 36415; 71010; 78452; 80048; 80053; 80061; 80076; 82962; 83690; 83735; 83880; 84484; 85025; 90471; 90686; 93005; 93017; 93458; 96374; 96375; 96376; 99152; 99153; A9500; C1769; C1892; G0378; G0379; J1644; J1815; J2250; J2785; J3010; J3490; Q9967; 99285-25; J2001